=== PATIENT | female | born 1955 | race Hispanic/Latino ===

== ENCOUNTER 2017-12-29 08:12 | Outpatient (CLI) | payer OTHER | END 2017-12-29 08:13 | disposition home or self-care (01) | LOC: BICMAMMO 08:12 | PROVIDERS: ATTEND Family Medicine | DX: Z12.31 Encounter for screening mammogram for malignant neoplasm of breast (principal); Z13.820 Encounter for screening for osteoporosis; M85.89 Other specified disorders of bone density and structure, multiple sites | CPT/HCPCS: 77063; 77067; 77080 ==

== ENCOUNTER 2018-03-25 04:49 | Emergency (ER) | payer OTHER ==
[2018-03-25] MEDS ORDERED: Diazepam 5 MG TAB ONE (05:54)
[2018-03-25] MEDS ORDERED: Ketorolac Tromethamine 30 MG/ML VIAL ONE (05:54)
--- NOTE | 2018-03-25 08:56 | RAD ---
PORTABLE AP CHEST XRAY: DATE: 03/25/18. HISTORY: Chest pain and muscle spasms to the left shoulder. COMPARISON: 11/09/11. FINDINGS: The cardiac silhouette is magnified by projection but stable in size. Pulmonary vasculature is withi n normal limits. Lungs are clear. There has been no interval change from the prior study. IMPRESSION: No acute cardiopulmonary process. POS: [facility]
== END 2018-03-25 06:17 | disposition home or self-care (01) ==
LOC: ERS 04:49
DX: M25.512 Pain in left shoulder (principal); K21.9 Gastro-esophageal reflux disease without esophagitis
CPT/HCPCS: 71045; 93005; 96372; J1885

== ENCOUNTER 2019-01-24 10:58 | Outpatient (CLI) | payer OTHER ==
--- NOTE | 2019-01-24 12:35 | MMO ---
Bilateral MAMMO Bilat Screen DDI+MARTY. CLINICAL HISTORY: Patient is 63 years old and is seen for screening. The patient has no family history of breast cancer. The patient has no personal history of cancer. VIEWS: The views performed were: bilateral craniocaudal with tomosynthesis and bilateral mediolateral oblique with tomosynthesis. FILMS COMPARED: The present examination has been compared to a prior imaging study performed at [facility] on 12/29/2017. MAMMOGRAM FINDINGS: There are scattered fibroglandular densities. Finding 1: There are benign appearing and vascular calcifications seen in both breasts. Finding 2: There are intramammary lymph nodes seen in both breasts. There are no suspicious masses, suspicious calcifications, or new areas of architectural distortion. IMPRESSION: THERE IS NO MAMMOGRAPHIC EVIDENCE OF MALIGNANCY. A ROUTINE FOLLOW-UP MAMMOGRAM IN 1 YEAR IS RECOMMENDED. THE RESULTS OF THIS EXAM WERE SENT TO THE PATIENT. ACR BI-RADS Category 2 - Benign finding MAMMOGRAPHY NOTE: 1. A negative mammogram report should not delay a biopsy if a dominant of clinically suspicious mass is present. 2. Approximately 10% to 15% of breast cancers are not detected by mammography. 3. Adenosis and dense breasts may obscure an underlying neoplasm. Reported by: RENEA HICKS MD Electonically Signed: [id number]
== END 2019-01-24 10:59 | disposition home or self-care (01) ==
LOC: BICMAMMO 10:58
PROVIDERS: ATTEND Family Medicine
DX: Z12.31 Encounter for screening mammogram for malignant neoplasm of breast (principal)
CPT/HCPCS: 77063; 77067

== ENCOUNTER 2019-05-02 07:14 | Outpatient (CLI) | payer OTHER ==
--- NOTE | 2019-05-02 09:50 | MRI ---
MRI ABDOMEN WITH AND WITHOUT IV CONTRAST: Date: 05/02/19 HISTORY: Epigastric pain. Patient had cholecystectomy 19 years ago. FINDINGS: There are tiny cysts in the liver and right kidney. There is a 3.5 cm exophytic cyst arising from the anterior aspect of the left lower kidney. No enhancing hepatic mass is seen. The patient is post cho lecystectomy. No abnormal intra or extrahepatic biliary ductal dilatation is seen. The spleen, pancre as, and adrenal glands are normal. No free fluid or lymphadenopathy is seen. There is no evidence of aneurysmal dilatation of the abdominal aorta. The bone marrow signal is normal. IMPRESSION: 1. Hepatic and renal cysts. 2. Status post cholecystectomy without evidence of biliary obstruction. POS: [facility]
== END 2019-05-02 07:15 | disposition home or self-care (01) ==
LOC: BICMRI 07:14
PROVIDERS: ATTEND Physician Assistant Medical
DX: R10.13 Epigastric pain (principal); N28.1 Cyst of kidney, acquired; K76.89 Other specified diseases of liver; Z90.49 Acquired absence of other specified parts of digestive tract
CPT/HCPCS: 74183; 82565

== ENCOUNTER 2020-04-09 12:30 | Outpatient (CLI) | payer MEDICARE ==
--- NOTE | 2020-04-09 13:43 | MMO ---
Bilateral MAMMO Bilat Screen [facility]DI+MARTY. CLINICAL HISTORY: Patient is 64 years old and is seen for screening. The patient has no family history of breast cancer. The patient has no personal history of cancer. VIEWS: The views performed were: bilateral craniocaudal with tomosynthesis and bilateral mediolateral oblique with tomosynthesis. FILMS COMPARED: The present examination has been compared to prior imaging studies performed at [facility] on 12/29/2017 and 01/24/2019, and at [facility] on 11/24/2011 and 06/22/2015. This study has been interpreted with the assistance of computer-aided detection. MAMMOGRAM FINDINGS: Finding 1: There are stable benign appearing calcifications seen in both breasts. Finding 2: There are stable intramammary lymph nodes seen in both breasts. There are no suspicious masses, suspicious calcifications, or new areas of architectural distortion. IMPRESSION: THERE IS NO MAMMOGRAPHIC EVIDENCE OF MALIGNANCY. A ROUTINE FOLLOW-UP MAMMOGRAM IN 1 YEAR IS RECOMMENDED. THE RESULTS OF THIS EXAM WERE SENT TO THE PATIENT. ACR BI-RADS Category 2 - Benign finding MAMMOGRAPHY NOTE: 1. A negative mammogram report should not delay a biopsy if a dominant of clinically suspicious mass is present. 2. Approximately 10% to 15% of breast cancers are not detected by mammography. 3. Adenosis and dense breasts may obscure an underlying neoplasm. Reported by: JAN ROSENTHAL MD Electonically Signed: [id number]
--- NOTE | 2020-04-09 13:50 | BD ---
Exam: DEXA Bone Density 04/09/20 HISTORY: Postmenopausal screening for osteoporosis. FINDINGS: Lumbar Spine: BMD (g/cm2) T-SCORE Z-SCORE L1 0.966 -0.2 1.4 L2 0.987 -0.4 1.4 L3 1.018 -0.6 1.3 L4 1.011 -0.5 1.5 L1-L4 0.998 -0.4 1.4 Femoral Neck: 0.688 -1.4 -0.4 Total Femur: 0.850 -0.8 0.5 There has been interval improvement of 4.9% in the BMD of the lumbar spine and a reduction of 2.3% in the BMD of the proximal femur since 06/22/15. The ten year fracture risk for a major osteoporotic fracture is 8.8% and for hip fracture is 1.4%. Impression: Osteopenia. POS: [facility]
== END 2020-04-09 12:31 | disposition home or self-care (01) ==
LOC: BICMAMMO 12:30
PROVIDERS: ATTEND Family Medicine
DX: Z12.31 Encounter for screening mammogram for malignant neoplasm of breast (principal); Z13.820 Encounter for screening for osteoporosis; M85.859 Other specified disorders of bone density and structure, unspecified thigh; Z78.0 Asymptomatic menopausal state
CPT/HCPCS: 77063; 77067; 77080

== ENCOUNTER 2020-05-24 14:56 | Observation (INO) | payer MEDICARE ==
[2020-05-24] MEDS ORDERED: Meclizine HCl 25 MG TAB ONE (15:30)
[2020-05-24 15:50] LABS: #Eosinphils 0.1 thou/uL (0.0-0.7); #Lymphocytes 0.9 thou/uL (1.20-3.40); #Monocytes 0.3 thou/uL (0.11-0.59); #Neutrophils 4.7 thou/uL (1.40-6.50); %Basophils 0.5 % (0.0-1.0); %Eosinophils 1.5 % (0.0-10.0); %Lymphocytes 15.3 % (21.0-51.0); %Monocytes 4.8 % (0.0-10.0); %Neutrophils 77.9 % (42.0-75.0); Hemoglobin 13.2 g/dL (12.0-16.0); Mean Corpuscular HGB CONC 33.9 g/dL (32.0-36.0); Mean Corpuscular Hemoglobin 31.4 pg (27.0-31.0); Mean Corpuscular Volume 92.7 fL (78.0-98.0); Mean Platelet Volume 9.5 fL (7.4-10.4); Platelet Count 172 thou/uL (130-400); RBC Distribution Width 12.7 % (11.5-14.5); Red Blood Cell (RBC) Count 4.21 mill/uL (4.20-5.40); White Blood Cell (WBC) Count 6.1 thou/uL (4.8-10.8)
[2020-05-24 16:19] LABS: ALT (SGPT) 13 U/L (8-55); AST (SGOT) 15 U/L (5-34); Albumin 4.1 g/dL (3.4-4.8); Alkaline Phosphatase 60 U/L (40-110); Anion Gap 12 mmol/L (10-20); BUN (Urea Nitrogen) 10 mg/dL (9.8-20.1); Bilirubin, Total 0.4 mg/dL (0.2-1.2); Calc. Creatinine Clearance 0 mL/min (70-130); Calcium 8.8 mg/dL (7.8-10.44); Carbon Dioxide 27 mmol/L (23-31); Chloride 106 mmol/L (98-107); Estimated GFR-MDRD 76; Globulin 3.1 g/dL (2.4-3.5); Glucose 102 mg/dL (80-115); Potassium 3.9 mmol/L (3.5-5.1); Protein, Total 7.2 g/dL (6.0-8.3); Sodium 141 mmol/L (136-145)
--- NOTE | 2020-05-24 16:32 | CT ---
Head CT without contrast: 05/24/2020 COMPARISON: None HISTORY: Headache TECHNIQUE: Axial CT imaging at 5 mm intervals from vertex through skull base without contrast FINDINGS: The visualized paranasal sinuses and mastoid air cells are well aerated. No displaced kelly rial fracture, intracranial hemorrhage, midline shift, or mass effect. IMPRESSION: No acute findings.
--- NOTE | 2020-05-24 17:32 | PDOC.HHP ---
Hospitalist HPI - History of Present Illness vertigo History of Present Illness: This is a 64 year old female with history of diabetes who presented to the ER with vertigo that started this morning. The patient states she woke up this morning and when she stood up she felt off balance and couldn't walk. She describes a sensation as the room spinning around. She also reports feeling lightheaded. Her lightheadedness is worsened when going from a sitting to a standing position. She states this has never happened before. She denies any tingling in her arms or legs. She has been having a cricket-like sound in her right ear for the past 3 months, but this morning she states the sound disappeared. She has a history of chronic hearing loss to high-pitched sounds in both ears but does not wear any hearing aids. She denies any changes in her vision. She denies any recent flu-like symptoms. Did not she denies chest pain, palpitations, shortness of breath, cough, diarrhea, nausea, vomiting ED Course: Patient had reportedly gone to an outside urgent care and was prescribed meclizine. Meclizine provided no relief and she was sent to the emergency room. Upon arrival to the ER, her blood pressure was elevated at 179. CT scan of her head was normal. She was given aspirin 325 mg and meclizine 25 mg. Patient states that she also received Zofran today for nausea which helped. She is unable to vomit at baseline because of her Jonathon fundoplication. Labs were normal. Orthostatics were positive with a blood pressure drop from 179 systolic to 151 standing. Heart rate was unchanged. The patient did have intermittent heart rates down to the 40's in the ER per nursing. Hospitalist ROS - Review of Systems Constitutional: denies: fever, chills Eyes: reports: vision change ENT: denies: ear pain Respiratory: denies: cough, dry, shortness of breath Cardiovascular: reports: light headedness. denies: chest pain, palpitations, orthopnea, edema Gastrointestinal: denies: nausea, vomiting, abdominal pain, diarrhea Genitourinary: denies: dysuria, frequency Skin: denies: rash, lesions Hospitalist History - Past Medical History Other Medical History: Type II diabetes- not on medicine because her blood sugars fluctuate from 200 to 40 Hypertension IBS Depression - Past Surgical History Other Surgical History: Hysterectomy Cholecystectomy Left knee arthroscopy Jonathon fundoplication - Family History Other Family History: Negative for any neurologic problems - Social History Smoking Status: Never smoker Alcohol: reports: None Drugs: reports: none Living Situation: With Family Occupation: Patient is a retired school nurse - Exam General Appearance: NAD, awake alert Eye: PERRL, anicteric sclera ENT: normocephalic atraumatic, no oropharyngeal lesions Neck: no JVD Heart: RRR, no murmur, no gallops, no rubs Respiratory: CTAB, no wheezes, no rales, no ronchi Gastrointestinal: soft, non-tender, non-distended, normal bowel sounds Extremities: no cyanosis, no clubbing, no edema Skin: normal turgor, no lesions, no rashes Neurological: cranial nerve grossly intact, normal sensation to touch, no weakness Neurological - other findings: no dysdiadokinesia, no nystagmus Musculoskeletal: normal tone, normal strength, no muscle wasting Psychiatric: normal affect, normal behavior, A&O x 3 Hospitalist Results - Labs Result Diagrams: 05/24/20 15:30 05/24/20 15:30 Lab results: WBC 6.1 thou/uL (4.8-10.8) 05/24/20 15:30 Hgb 13.2 g/dL (12.0-16.0) 05/24/20 15:30 Hct 39.0 % (36.0-47.0) 05/24/20 15:30 MCV 92.7 fL (78.0-98.0) 05/24/20 15:30 Plt Count 172 thou/uL (130-400) 05/24/20 15:30 Neutrophils % 77.9 % (42.0-75.0) H 05/24/20 15:30 Sodium 141 mmol/L (136-145) 05/24/20 15:30 Potassium 3.9 mmol/L (3.5-5.1) 05/24/20 15:30 Chloride 106 mmol/L (98-107) 05/24/20 15:30 Carbon Dioxide 27 mmol/L (23-31) 05/24/20 15:30 BUN 10 mg/dL (9.8-20.1) 05/24/20 15:30 Creatinine 0.76 mg/dL (0.6-1.1) 05/24/20 15:30 Glucose 102 mg/dL (80-115) 05/24/20 15:30 Calcium 8.8 mg/dL (7.8-10.44) 05/24/20 15:30 Total Bilirubin 0.4 mg/dL (0.2-1.2) 05/24/20 15:30 AST 15 U/L (5-34) 05/24/20 15:30 ALT 13 U/L (8-55) 05/24/20 15:30 Alkaline Phosphatase 60 U/L (40-110) 05/24/20 15:30 Troponin I Less than 0.010 ng/mL (< 0.028) 05/24/20 15:30 Serum Total Protein 7.2 g/dL (6.0-8.3) 05/24/20 15:30 Albumin 4.1 g/dL (3.4-4.8) 05/24/20 15:30 - EKG Interpretation EKG: Normal sinus rhythm Hospitalist H&P A/P - Plan Plan: CT Brain: no acute findings This is a 64 year old female with past medical history of diabetes, hypertension who presented with symptomatic vertigo, found to be orthostatic #Orthostatic hypotension #Vertigo - possibly from orthostatic hypotension versus bradycardia , rule out stroke - patient's blood pressure went from 179 to 150 systolic with lightheadedneses while going from laying to standing. Will trial of IV fluids - patient's heart rate intermittently dropped to 40. Will monitor on telemetry. EKG unremarkable. TSH normal - will order MRI brain to rule out stroke, but I feel this is less likely - place PT evaluation Bradycardia - heart rate intermittently drops to 40. She is asymptomatic at heart rate 55 - check ECHO. TSh normal. Trend troponins - monitor on telemetry. Consider cardiology consult if continues to be symptomatic Type II Diabetes - last A1C was 6.1 last year. Continue diabetic diet - not on meds as an outpatient - will do insulin sliding scale Chronic pancreatitis - continue pancreatin IBS - continue dicyclomine
[2020-05-24] MEDS ORDERED: Aspirin 325 MG TAB ONE (17:37)
[2020-05-24] MEDS ORDERED: Dextrose 50% Abboject 50 ML SYRINGE SLOW IVP PRN (18:18)
[2020-05-24] MEDS ORDERED: Dicyclomine 10 MG/5 ML PO PRN (18:18)
[2020-05-24] MEDS ORDERED: Dextrose 5% in Water 1,000 ML IV PRN (18:18)
[2020-05-24] MEDS ORDERED: HumaLOG 300 UNITS/3 ML VIAL SC PRN (18:18)
[2020-05-24] MEDS ORDERED: Famotidine 20 MG TAB PO PRN (18:30)
--- NOTE | 2020-05-24 18:50 | RAD ---
Portable frontal chest radiograph: 05/24/2020 COMPARISON: 03/25/2018 HISTORY: Vertigo FINDINGS: Lungs are clear. Heart and mediastinal contours appear within normal limits. IMPRESSION: No acute findings.
[2020-05-24 18:54] LABS: Troponin I Less than 0.010 ng/mL (< 0.028)
[2020-05-24] MEDS: Sodium Chloride 0.9% 1,000 ML IV SCH (21:35)
[2020-05-24 22:02] LABS: Troponin I 0.011 ng/mL (< 0.028)
[2020-05-24 23:03] LABS: SARS-CoV-2 MS2 Positive; SARS-CoV-2 N Gene Negative; SARS-CoV-2 S Gene Negative; SARS-CoV-2 by NAA Not Detected (NotDetected); SARS-CoV-2 orf1ab Negative
[2020-05-25 00:59] VITALS: BMI 35.6
[2020-05-25 04:48] LABS: #Eosinphils 0.2 thou/uL (0.0-0.7); #Lymphocytes 1.6 thou/uL (1.20-3.40); #Monocytes 0.4 thou/uL (0.11-0.59); %Basophils 0.8 % (0.0-1.0); %Neutrophils 56.1 % (42.0-75.0); Hemoglobin 11.6 g/dL (12.0-16.0); Mean Corpuscular HGB CONC 32.5 g/dL (32.0-36.0); Mean Corpuscular Hemoglobin 29.7 pg (27.0-31.0); Mean Corpuscular Volume 91.5 fL (78.0-98.0); Platelet Count 179 thou/uL (130-400); RBC Distribution Width 12.9 % (11.5-14.5); White Blood Cell (WBC) Count 5.3 thou/uL (4.8-10.8)
[2020-05-25 05:13] LABS: Anion Gap 13 mmol/L (10-20); BUN (Urea Nitrogen) 12 mg/dL (9.8-20.1); Calc. Creatinine Clearance 123 mL/min (70-130); Calcium 8.3 mg/dL (7.8-10.44); Carbon Dioxide 24 mmol/L (23-31); Chloride 110 mmol/L (98-107); Estimated GFR-MDRD 79; Glucose 87 mg/dL (80-115); Potassium 3.8 mmol/L (3.5-5.1); Sodium 143 mmol/L (136-145)
--- NOTE | 2020-05-25 08:54 | MRI ---
MRI BRAIN WITHOUT CONTRAST: HISTORY: Headache, acute vertigo COMPARISON: 07/27/2012 CORRELATION: CT scan from 07/24/2019. FINDINGS: No restricted diffusion is seen. There are multiple foci of T2 prolongation in the periventricular wh ite matter, consistent with chronic small vessel ischemic disease. The ventricular size is appropriate and the basilar cisterns are patent. No evidence of acute infarct, hemorrhage, midline shift or abnormal extra-axial fluid collections is seen. There is mucosal disease in the paranasal sinuses. IMPRESSION: No evidence of acute intracranial process.
[2020-05-25] MEDS ORDERED: Aspirin Chewable 81 MG TAB PO SCH (09:00)
[2020-05-25] MEDS ORDERED: Cholecalciferol 1,000 UNITS (25 MCG) TAB PO SCH (09:00)
[2020-05-25] MEDS ORDERED: Meclizine HCl 25 MG TAB PO PRN (09:53)
[2020-05-25 11:47] VITALS: TEMP 97.8
[2020-05-25] MEDS: Sodium Chloride 0.9% 1,000 ML IV SCH (11:50)
--- NOTE | 2020-05-25 13:04 | ULT ---
CAROTID DOPPLER: INDICATION: Vertigo. TECHNIQUE: Ultrasound and Doppler studies performed of the extracranial carotid arteries. Color Doppler, spectr al analysis, and velocity recordings obtained. FINDINGS: Ultrasound images showed no significant plaque or intimal thickening. Velocity recordings are normal bilaterally. Vertebral arteries show antegrade flow. IMPRESSION: 1. No evidence of significant plaque by ultrasound. 2. No evidence of stenosis identified. POS: [facility]
[2020-05-25 15:42] VITALS: BP 166/77
--- NOTE | 2020-05-25 18:37 | PDOC.DS.DS ---
Provider - Provider Date of Admission: 05/24/20 17:03 Date of Discharge: 05/25/20 Admitting Provider: Cathy Espinoza MD Primary Care Physician: Justin Nicole MD Course - Hospital Course Hospital Course: Discharge Diagnoses: 1. Vertigo possibly secondary to orthostatic hypotension versus inner ear etiology 2. Bradycardia which resolved 3. Anemia Brief HPI : This is a 64 year old female with history of diabetes who presented to the ER with vertigo that started that morning. She reported lightheadedness when sabrina g from a sitting to standing position. She also had tinnitus that resolved the morning of admission and chronic hearing loss but no vision changes. She was admitted for further workup. Hospital Course: Vertigo: the patient had an MRI brain which showed no stroke. Carotid dopplers showed no stenosis. The patient did have a 20 point drop in blood pressure from 170 to 151 in the ER. She was hydrated with IV fluids with improvement. Repeat orthostatics were normal with a BP of 143 sitting to 158 standing. The patient states she was still slightly off balance but significantly improved from the day before. She stated the sound in her right ear returned today. I advised her to consider seeing an ENT doctor. The patient called her ENT doctor and set up an appointment for next Monday. She will be discharged on meclizine since she reported significant improvement with this. I also advised her to discontinue her hydrochlorothiazide since her blood pressure was 140 - 158 without any blood pressure medicines. She will resume her losartan. She should follow up with her PCP in a week. Bradycardia: Patient had an episode of bradycardia in the emergency room with a heart rate dropping to 40. She was monitored on telemetry for 24 hours. Her EKG showed normal sinus rhythm. She did not have any significant bradycardia on hospital and her heart rate remained 50s to 70s. Echo was unremarkable and showed moderate tricuspid regurgitation. Anemia: Patient had hemoglobin of 11.6 on the day of discharge. This was likely secondary to IV fluids that were administered. Consider repeat CBC as an outpatient Pertinent Studies: CT brain: no acute findings MRI brain: no evidence of stroke. ECHO: EF 50-65%. Moderate tricuspid regurgitation. Mild mitral regurgitation Carotid doppler: no stenosis Brain MRI: no acute process. Chronic small vessel ischemic disease Resuscitation Status: 05/24/20 18:15 Resuscitation Status Routine Resuscitation Status: FULL: Full Resuscitation - Labs Lab Results: 05/25/20 04:33 05/25/20 04:33 Abnormal Lab Results - Last 48 hrs 05/24/20 15:30: MCH 31.4 H, Neutrophils % 77.9 H, Lymphocytes % 15.3 L, Lymphocytes # 0.9 L 05/25/20 04:33: Chloride 110 H 05/25/20 04:33: RBC 3.90 L, Hgb 11.6 L, Hct 35.7 L - Physical Exam Vitals: Vital Signs (12 hours) Temp Pulse Resp BP BP BP BP 05/25/20 14:15 166/77 H 174/81 H 05/25/20 11:24 97.8 F 57 L 18 143/80 H 05/25/20 07:32 97.5 F L 58 L 16 119/61 BP BP Pulse Ox 05/25/20 14:15 05/25/20 11:24 158/80 H 142/82 H 98 05/25/20 07:32 100 Weight Weight 227 lb 4.745 oz Physical Exam: The patient was seen and examined on the day of discharge. General Appearance: NAD, awake alert Eye: PERRL, anicteric sclera ENT: normocephalic atraumatic, no oropharyngeal lesions. Mild dizziness when shaking head side to side fast, but no nystagmus Neck: no JVD Heart: RRR, no murmur, no gallops, no rubs Respiratory: CTAB, no wheezes, no rales, no ronchi Gastrointestinal: soft, non-tender, non-distended, normal bowel sounds Extremities: no cyanosis, no clubbing, no edema Skin: normal turgor, no lesions, no rashes Neurological: cranial nerve grossly intact, normal sensation to touch, no weakness Neurological - other findings: no dysdiadokinesia, no nystagmus Musculoskeletal: normal tone, normal strength, no muscle wasting Psychiatric: normal affect, normal behavior, A&O x 3 Problem - Discharge Plan Assessment: Follow-up PCP and ENT doctor in a week. Consider repeat CBC to make sure her anemia has resolved. - Time spent with Patient (mins): 35 Plan - Discharge Medications Prescriptions: Meclizine HCl [Antivert] 25 mg PO Q8H PRN #90 tab PRN Reason: Dizziness Home Medications: Medication Instructions Recorded Confirmed Type Cholecalciferol (Vitamin D3) 1,000 unit PO DAILY 03/16/13 05/25/20 History [Vitamin D3] Dicyclomine [Bentyl] 20 mg PO QID PRN 05/25/20 05/25/20 History Escitalopram Oxalate 20 mg PO DAILY 05/25/20 05/25/20 History Ibuprofen [Motrin Ib] 800 mg PO PRN PRN 05/25/20 05/25/20 History Losartan [Cozaar] 25 mg PO DAILY 05/25/20 05/25/20 History Meclizine HCl [Antivert] 25 mg PO Q8H PRN #90 tab 05/25/20 Rx Allergies: guaifenesin Allergy (Unknown, Verified 03/16/13 12:46) - Discharge Instructions Activity:: Activity as Tolerated Nourishment:: Heart Healthy Diet - Follow up Plan Referrals: Justin Nicole MD [Primary Care Provider] - Disposition: HOME Quality - Care Measures CORE MEASURES:: N/A
== END 2020-05-25 15:27 | disposition home or self-care (01) ==
LOC: ERS 14:56 → 2SE 17:03
PROVIDERS: ADMIT Internal Medicine; ATTEND Internal Medicine
DX: R42 Dizziness and giddiness (principal); I95.1 Orthostatic hypotension; R00.1 Bradycardia, unspecified; D64.9 Anemia, unspecified; H91.90 Unspecified hearing loss, unspecified ear; E11.9 Type 2 diabetes mellitus without complications; I10 Essential (primary) hypertension; K58.9 Irritable bowel syndrome, unspecified; F32.9 Major depressive disorder, single episode, unspecified; K86.1 Other chronic pancreatitis; Z79.899 Other long term (current) drug therapy; Z88.8 Allergy status to other drugs, medicaments and biological substances; Z20.828 Contact with and (suspected) exposure to other viral communicable diseases
CPT/HCPCS: 70450; 70551; 71045; 80048; 82962 ×2; 84484 ×2; 85025; 93005; 93306; 93880; 97139 ×4; 99285; G0378 ×3; U0003; 36415; 36416; 80053; 84443; 87635

== ENCOUNTER 2021-04-30 13:22 | Outpatient (CLI) | payer MEDICARE | END 2021-04-30 13:23 | disposition home or self-care (01) | LOC: BICMAMMO 13:22 | PROVIDERS: ATTEND Family Medicine | DX: Z12.31 Encounter for screening mammogram for malignant neoplasm of breast (principal) | CPT/HCPCS: 77063; 77067 ==

== ENCOUNTER 2021-06-18 13:58 | Outpatient (CLI) | payer MEDICARE ==
[2021-06-19 14:17] LABS: SARS-CoV-2 PCR by NAA Not Detected (NotDetected)
== END 2021-06-18 13:59 | disposition home or self-care (01) ==
LOC: LABBT 13:58
PROVIDERS: ATTEND Surgery
DX: Z01.812 Encounter for preprocedural laboratory examination (principal); Z20.822 Contact with and (suspected) exposure to COVID-19
CPT/HCPCS: U0003; U0005

== ENCOUNTER 2021-06-21 08:04 | Outpatient (CLI) | payer MEDICARE | END 2021-06-21 08:05 | disposition home or self-care (01) | LOC: NM 08:04 | PROVIDERS: ATTEND Surgery | DX: K21.9 Gastro-esophageal reflux disease without esophagitis (principal) | CPT/HCPCS: 78264; A9541 ==

== ENCOUNTER 2021-06-23 08:50 | Outpatient (CLI) | payer MEDICARE | END 2021-06-23 08:51 | disposition home or self-care (01) | LOC: RAD 08:50 | PROVIDERS: ATTEND Surgery | DX: K21.9 Gastro-esophageal reflux disease without esophagitis (principal); K22.89 Other specified disease of esophagus | CPT/HCPCS: 74220 ==

== ENCOUNTER 2023-03-03 07:06 | Outpatient (CLI) | payer MEDICARE | END 2023-03-03 07:07 | disposition home or self-care (01) | LOC: BICULT 07:06 | PROVIDERS: ATTEND Internal Medicine Gastroenterology | DX: K21.9 Gastro-esophageal reflux disease without esophagitis (principal); A04.8 Other specified bacterial intestinal infections; D50.9 Iron deficiency anemia, unspecified; R10.9 Unspecified abdominal pain; K76.0 Fatty (change of) liver, not elsewhere classified; Z90.49 Acquired absence of other specified parts of digestive tract | CPT/HCPCS: 76700 ==